=== PATIENT | female | born 1980 | race Caucasian/White ===

== ENCOUNTER 2020-05-13 14:00 | Emergency (ER) | payer OTHER | END 2020-05-13 14:50 | disposition home or self-care (01) | LOC: M ED 14:00 | DX: O9A.212 Injury, poisoning and certain other consequences of external causes complicating pregnancy, second trimester (principal); S63.501A Unspecified sprain of right wrist, initial encounter; W01.0XXA Fall on same level from slipping, tripping and stumbling without subsequent striking against object, initial encounter; Y92.89 Other specified places as the place of occurrence of the external cause; Z3A.27 27 weeks gestation of pregnancy ==